=== PATIENT | male | born 1940 | race Caucasian/White ===

== ENCOUNTER → 2023-04-12 12:47 | Outpatient (BNVA) | payer MEDICARE, SELFPAY | PROVIDERS: PCP Nurse Practitioner Family; Visit Provider Hospitalist | DX: G47.33 Obstructive sleep apnea (adult) (pediatric) (principal); J31.0 Chronic rhinitis; Z99.89 Dependence on other enabling machines and devices | CPT/HCPCS: 99212 ==

== ENCOUNTER 2024-04-11 12:52 | Outpatient (AMB) | payer MEDICARE, SELFPAY ==
[2024-04-11 13:10] VITALS: BP 132/60; PULSE 81; O2SAT 94; BMI 34.1
--- NOTE | 2024-04-11 13:10 | A.OFFVIS_ITS ---
Vital Signs 04/11/24 13:10 Height 6 ft Weight 251 lb 5.231 oz BMI 34.1 BP 132/60 Blood Pressure Location Lt brachial Position Sitting Pulse 81 Pulse Source Pulse Oximeter Pulse Oximetry (%) 94 Oxygen Delivery Method Room Air Intake Visit Reasons: Sleep apnea Ream Cutter Required: No Allergies amoxcilin Allergy (Unknown, Uncoded 04/11/24 13:13) Unconscious HPI Comments Details: The patient is an 83-year-old gentleman with known history of obstructive sleep apnea has been very adherent to his APAP therapy. The therapy has been affecting beneficial for many years. He has been working closely with [employer], Kathleen. his APAP machine is now proximal about 80 years old and is not working effectively for him not this time. Machine is not able to download any information. Therefore, I did reach out to his DME company and did request a replacement machine for him. I will request an APAP Resmed AirSense 11. The patient continues to have issues with chronic rhinitis. He has tried multiple [id number] nasal sprays without any significant improvement. The only 1 that gives him partial improvement is the ipratropium nasal spray. No history of glaucoma. His last eye exam was perfectly fine otherwise patient is without any other respiratory complaints. Once he starts with his new APAP replacement she will call me if any issues arise. Otherwise will follow-up in a year's time. 04/11/2024 the patient is here for a pulmonary follow-up visit. Overall the patient has been doing well from a respiratory status. 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 He has been working well. He is tolerating most of the night. He is using more than 4 hours a night. The therapy has been affecting beneficial. We do not have access to airway. Will going to request a so I can download the data and adjust the machine accordingly. He did have a cold recently and was having some congestion. Still though the machine was helpful for him and he did use it throughout the illness. Recently also had a CTA back in 03/27/2024 to assess his aortic aneurysm. We did personally review the images from 2023 and also we looked at the CT scan from 09/27/2022 and also from 2019. The patient does have some stable pulmonary nodules although he has a new intraluminal nodular density in the right mainstem bronchus that looks like mucus. In addition to that there is a small irregular airspace disease in the lingula areas suggesting of small infection. He also has evidence of chronic bronchitis. Likely that this is all related to a lower respiratory infection. Will go ahead and treat him with doxycycline. In addition to that I will request an Acapella valve in order to provide mucus clearance for his chronic bronchitis and breathing issues. The patient also noted to have an enlarging aortic aneurysm. He will be following up with Cardiovascular surgery. At this point, the pulmonary findings appear to be more related to his recent illness and less concerning for malignancy. Therefore after he completes the antibiotics and start using the Acapella valve will go ahead and repeat the CT scan around 8-[address] last [address] scan. Will follow-up them. [facility] Medical History (Updated 04/11/24 @ 21:14 by Martin Sethi MD) Chronic bronchitis Aortic aneurysm Pulmonary nodule Chronic rhinitis ELA on CPAP Social History (Updated 04/12/23 @ 13:12 by AGATHA Fisher) Patient Tobacco Use Status: Former Tobacco user Tobacco use type: Cigarette Years Smoked: 30 Years Review of Systems Const Denies headache(s) and Denies snoring Eyes Denies blurry vision and Denies change in vision ENT Denies headache(s), Reports nasal congestion, Reports nasal discharge and Reports post nasal drip Card Denies chest pain and Denies palpitations Resp Reports cough, Denies snoring and Denies wheezing GI Reports no additional complaints Musc Reports no additional complaints Skin/Breast Denies rash Neuro Reports no additional complaints and Denies headache(s) Endo Denies palpitations Aubrey/Lymph Denies easy bruising Aller/Immun Reports seasonal rhinorrhea and Denies wheezing Physical Exam Vital Signs: Last Vital Signs Pulse 81 04/11/24 13:10 BP 132/60 04/11/24 13:10 Pulse Ox 94 04/11/24 13:10 Oxygen Delivery Method Room Air 04/11/24 13:10 BMI result Body Mass Index 34.1 Const General: comfortable HEENT General nose exam: Normal nasal mucous membranes and turbinates present Neck Neck: Yes supple Chest Chest palpation & inspection: normal inspection of the chest Resp Effort & Inspection: normal respiratory effort Auscultation: diminished lung sounds Cardio Rate: regular rate Rhythm: regular rhythm Heart sounds: S1 normal heart sound present and S2 normal heart sound present GI Palpation (GI): Soft to palpation Skin General skin exam: no rashes or lesions noted Extrem General: No clubbing, No cyanosis and Yes edema Results Reviewed Results Reviewed: personally reviewed CT chest 03/2024, 09/2023, 2018 demonstrating small intraluminal nodules and 2cm density in the lingula, aneurysm Assessment & Plan Assessment & Plan (1) ELA on CPAP: Code(s): G47.33 - Obstructive sleep apnea (adult) (pediatric); Z99.89 - Dependence on other enabling machines and devices Category: Medical (2) Chronic rhinitis: Code(s): J31.0 - Chronic rhinitis Category: Medical (3) Pulmonary nodule: Code(s): R91.1 - Solitary pulmonary nodule Category: Medical (4) Aortic aneurysm: Code(s): I71.9 - Aortic aneurysm of unspecified site, without rupture Category: Medical Qualifiers: Abdominal aorta location: unspecified (5) Chronic bronchitis: Code(s): J42 - Unspecified chronic bronchitis Category: Medical Qualifiers: Chronic bronchitis type: simple Qualified Code(s): J41.0 - Simple chronic bronchitis Plan New finding likely related on ongoing lower respiratory infection. May proceed with cardiovascular evaluation. We will treat him and re-evaluate in 7-8 weeks continue APAP Airsense 11, AHI 1. He does use the N30i medium mask. Continue ipratropium nasal spray nasal rinsing at nighttime start Doxycycline start Acapella valve for CPT Repeat CT chest in 7-8 weeks F/U after CT chest Orders: Orders CT chest wo IV con 06/12/24 R91.1 - Solitary pulmonary nodule Medications: New doxycycline hyclate 100 mg PO BID 20 caps 0RF 10 days Refilled ipratropium bromide administer into each nostril 2 sprays intranasal TID 45 mL 3RF 90 days Coding Level of Care Code Est Pt Level 5 (64508) Diagnoses ELA on CPAP G47.33; Z99.89 Chronic rhinitis J31.0 Pulmonary nodule R91.1 Aortic aneurysm I71.9 Abdominal aorta location: unspecified Simple chronic bronchitis J41.0 Chronic bronchitis type: simple Time Spent (min) 45
== END 2024-04-11 13:44 | disposition home or self-care (01) ==
PROVIDERS: PCP Nurse Practitioner Family; Visit Provider Hospitalist
DX: G47.33 Obstructive sleep apnea (adult) (pediatric) (principal); Z99.89 Dependence on other enabling machines and devices; J31.0 Chronic rhinitis; R91.1 Solitary pulmonary nodule; I71.9 Aortic aneurysm of unspecified site, without rupture; J41.0 Simple chronic bronchitis
CPT/HCPCS: 99215

== ENCOUNTER → 2024-04-11 12:52 | Outpatient (BNVA) | payer MEDICARE, SELFPAY | PROVIDERS: PCP Nurse Practitioner Family; Visit Provider Hospitalist | DX: G47.33 Obstructive sleep apnea (adult) (pediatric) (principal); J31.0 Chronic rhinitis; R91.1 Solitary pulmonary nodule; I71.9 Aortic aneurysm of unspecified site, without rupture; J41.0 Simple chronic bronchitis; Z99.89 Dependence on other enabling machines and devices | CPT/HCPCS: 99212 ==

== ENCOUNTER 2024-08-07 12:48 | Outpatient (AMB) | payer MEDICARE, SELFPAY ==
[2024-08-07 13:06] VITALS: BP 128/70; PULSE 71; O2SAT 96; BMI 34.2
--- NOTE | 2024-08-07 13:06 | A.OFFVIS_ITS ---
Vital Signs 08/07/24 13:06 Height 6 ft Weight 252 lb 6.868 oz BMI 34.2 BP 128/70 Blood Pressure Location Lt brachial Position Sitting Pulse 71 Pulse Source Pulse Oximeter Pulse Oximetry (%) 96 Oxygen Delivery Method Room Air Intake Visit Reasons: Sleep apnea Photo Cartographer Required: No Allergies amoxcilin Allergy (Unknown, Uncoded 08/07/24 13:09) Unconscious HPI Comments Details: The patient is an 84-year-old gentleman with known history of obstructive sleep apnea has been very adherent to his APAP therapy. The therapy has been affecting beneficial for many years. He has been working closely with [employer], Kathleen. his APAP machine is now proximal about 80 years old and is not working effectively for him not this time. Machine is not able to download any information. Therefore, I did reach out to his DME company and did request a replacement machine for him. I will request an APAP Resmed AirSense 11. The patient continues to have issues with chronic rhinitis. He has tried multiple [id number] nasal sprays without any significant improvement. The only 1 that gives him partial improvement is the ipratropium nasal spray. No history of glaucoma. His last eye exam was perfectly fine otherwise patient is without any other respiratory complaints. Once he starts with his new APAP replacement she will call me if any issues arise. Otherwise will follow-up in a year's time. 04/11/2024 the patient is here for a pulmonary follow-up visit. Overall the patient has been doing well from a respiratory status. He did pick remover the new APAP. He has been working well. He is tolerating most of the night. He is using more than 4 hours a night. The therapy has been affecting beneficial. We do not have access to airway. Will going to request a so I can download the data and adjust the machine accordingly. He did have a cold recently and was having some congestion. Still though the machine was helpful for him and he did use it throughout the illness. Recently also had a CTA back in 03/27/2024 to assess his aortic aneurysm. We did personally review the images from 2023 and also we looked at the CT scan from 09/27/2022 and also from 2019. The patient does have some stable pulmonary nodules although he has a new intraluminal nodular density in the right mainstem bronchus that looks like mucus. In addition to that there is a small irregular airspace disease in the lingula areas suggesting of small infection. He also has evidence of chronic bronchitis. Likely that this is all related to a lower respiratory infection. Will go ahead and treat him with doxycycline. In addition to that I will request an Acapella valve in order to provide mucus clearance for his chronic bronchitis and breathing issues. The patient also noted to have an enlarging aortic aneurysm. He will be following up with Cardiovascular surgery. At this point, the pulmonary findings appear to be more related to his recent illness and less concerning for malignancy. Therefore after he completes the antibiotics and start using the Acapella valve will go ahead and repeat the CT scan around 8-[address] last [address] scan. Will follow-up them. 08/07/2024 the patient is here for a pulmonary follow-up visit. Overall the patient is doing better. He did complete a course of doxycycline then after that he had dental procedure and placed on clindamycin. His doing well denies any respiratory complaints. He did have a repeat CT scan of the chest which we personally reviewed. It appears that the lingular opacity still about the same size. Although slightly more extend to the periphery. It appears that has a small air bronchogram. We did talk about considering bronchoscopy to address the areas specially with his history of smoking and asbestos. Although at this point the patient is concerned because of his cardiovascular risk factors and his overall health undergoing any procedure. I do agree at this time is reasonable to making sure that we follow it closely or consider bronchoscopy. Will go ahead and hold off on the bronchoscopy this time but will monitor closely for any worsening symptoms and if so we can consider bronchoscopy at that point. The patient did not get his Acapella valve so therefore did bring if flutter valve available. I did tissue might uses so he can work on mucus clearance with device prior to the next CT scan. Which she refuses CT scan in 3-4 months specially with his risk of cancer with those the asbestos in the smoking. If the area is any worse or changing during the next CT scan then he will probably need more invasive or semi-invasive diagnostic interventions. [facility] Medical History (Updated 08/07/24 @ 13:10 by Martin Sethi MD) Chronic bronchitis Aortic aneurysm Pulmonary nodule Chronic rhinitis ELA on CPAP Social History (Updated 04/12/23 @ 13:12 by AGATHA Fisher) Patient Tobacco Use Status: Former Tobacco user Tobacco use type: Cigarette Years Smoked: 30 Years Review of Systems Const Denies headache(s) and Denies snoring Eyes Denies blurry vision and Denies change in vision ENT Denies headache(s), Reports nasal congestion, Reports nasal discharge and Reports post nasal drip Card Denies chest pain and Denies palpitations Resp Denies cough, Denies snoring and Denies wheezing GI Reports no additional complaints Musc Reports no additional complaints Skin/Breast Denies rash Neuro Reports no additional complaints and Denies headache(s) Endo Denies palpitations Aubrey/Lymph Denies easy bruising Aller/Immun Reports seasonal rhinorrhea and Denies wheezing Physical Exam Vital Signs: Last Vital Signs Pulse 71 08/07/24 13:06 BP 128/70 08/07/24 13:06 Pulse Ox 96 08/07/24 13:06 Oxygen Delivery Method Room Air 08/07/24 13:06 BMI result Body Mass Index 34.2 Const General: comfortable HEENT General nose exam: Normal nasal mucous membranes and turbinates present Neck Neck: Yes supple Chest Chest palpation & inspection: normal inspection of the chest Resp Effort & Inspection: normal respiratory effort Auscultation: diminished lung sounds Cardio Rate: regular rate Rhythm: regular rhythm Heart sounds: S1 normal heart sound present and S2 normal heart sound present GI Palpation (GI): Soft to palpation Skin General skin exam: no rashes or lesions noted Extrem General: No clubbing, No cyanosis and Yes edema Assessment & Plan Assessment & Plan (1) ELA on CPAP: Code(s): G47.33 - Obstructive sleep apnea (adult) (pediatric); Z99.89 - Dependence on other enabling machines and devices Category: Medical (2) Chronic rhinitis: Code(s): J31.0 - Chronic rhinitis Category: Medical (3) Pulmonary nodule: Code(s): R91.1 - Solitary pulmonary nodule Category: Medical (4) Aortic aneurysm: Code(s): I71.9 - Aortic aneurysm of unspecified site, without rupture Category: Medical Qualifiers: Abdominal aorta location: unspecified (5) Chronic bronchitis: Code(s): J42 - Unspecified chronic bronchitis Category: Medical Qualifiers: Chronic bronchitis type: simple Qualified Code(s): J41.0 - Simple chronic bronchitis Plan Consider Broncoscopy to assess CLEOPATRA density. Pt will call if symptomatic. Otherwise, we will follow up with a repeat CT chest in 3-4 months. continue APAP Airsense 11, AHI 1. He does use the N30i medium mask. Continue ipratropium nasal spray nasal rinsing at nighttime completed Doxycycline and Clindamycin start Acapella valve for CPT-provided [place] Repeat CT chest in 3-4 months F/U after CT chest Orders: Orders CT chest wo IV con 3 Months R91.1 - Solitary pulmonary nodule Coding Level of Care Code Tele Est Pt Level 4 (49802) Diagnoses ELA on CPAP G47.33; Z99.89 Chronic rhinitis J31.0 Pulmonary nodule R91.1 Aortic aneurysm I71.9 Abdominal aorta location: unspecified Simple chronic bronchitis J41.0 Chronic bronchitis type: simple Time Spent (min) 18
== END 2024-08-07 13:42 | disposition home or self-care (01) ==
PROVIDERS: PCP Nurse Practitioner Family; Visit Provider Hospitalist
DX: G47.33 Obstructive sleep apnea (adult) (pediatric) (principal); Z99.89 Dependence on other enabling machines and devices; J31.0 Chronic rhinitis; R91.1 Solitary pulmonary nodule; I71.9 Aortic aneurysm of unspecified site, without rupture; J41.0 Simple chronic bronchitis
CPT/HCPCS: 99214

== ENCOUNTER → 2024-08-07 12:48 | Outpatient (BNVA) | payer MEDICARE, SELFPAY | PROVIDERS: PCP Nurse Practitioner Family; Visit Provider Hospitalist | DX: G47.33 Obstructive sleep apnea (adult) (pediatric) (principal); J31.0 Chronic rhinitis; J41.0 Simple chronic bronchitis; R91.1 Solitary pulmonary nodule; I71.9 Aortic aneurysm of unspecified site, without rupture; Z99.89 Dependence on other enabling machines and devices | CPT/HCPCS: 99212 ==

== ENCOUNTER → 2024-12-01 12:46 | Outpatient (BNVA) | payer MEDICARE, SELFPAY | PROVIDERS: PCP Nurse Practitioner Family; Visit Provider Hospitalist | DX: G47.33 Obstructive sleep apnea (adult) (pediatric) (principal); J31.0 Chronic rhinitis; J41.0 Simple chronic bronchitis; R91.1 Solitary pulmonary nodule; I71.9 Aortic aneurysm of unspecified site, without rupture; Z99.89 Dependence on other enabling machines and devices | CPT/HCPCS: 99212 ==